=== PATIENT | male | born 1945 | race Caucasian/White ===

== ENCOUNTER 2023-05-19 08:56 | Outpatient (AMB) | payer MEDICARE, SELFPAY ==
--- NOTE | 2023-05-19 08:51 | MHC.OFFVIS ---
Intake Vital Signs 05/19/23 09:07 Height 5 ft 9 in Weight 276 lb 6 oz BMI 40.8 BP 163/70 H Blood Pressure Location Rt brachial Position Sitting Pulse 56 Pulse Source Pulse Oximeter Pulse Oximetry (%) 96 Oxygen Delivery Method Room Air Intake Visit Reasons: back pain Intake Note: Pain today 11/19 Line Ordering Clinician Required: No Accompanied by: Self / Same As Patient Allergies Penicillins Allergy (Unknown, Verified 05/19/23 09:02) Unknown Medication List - Last Reconciled 05/19/23 by EMIGDIO Long allopurinol 300 mg PO DAILY cyclobenzaprine 10 mg PO TID doxazosin 4 mg PO DAILY losartan 100 mg PO DAILY metoprolol tartrate 50 mg PO BID nitroglycerin mg sublingual simvastatin 20 mg PO BEDTIME tramadol 50 mg PO TID PRN HPI back pain HPI Details Patient is a pleasant 77 years old male presents today for initial evaluation of chronic low back pain with radiation into his right lateral hip. Denies any past or recent trauma, injury or falls. Patient has been followed at [facility] for back pain and has completed physical therapy, short term rehab and multiple diagnostic and therapeutic injections with various results. His back pain today is facet mediated with right sacroiliac joint pain components and localized tenderness in right greater trochanteric bursa. Pain is worst in the morning upon waking up and improves mildly as the day goes on. He reports increase in pain with prolonged positions and avoids sleeping on right side due to pain. Denies previous spine surgery, reports history of successful partial left knee replacement. Despite the pain, patient tries to lead an active lifestyle and exercises regularly for arthritis related pain. He lives alone and spends some of winter months in [place]. Denies any fever, abdominal or groin pain, weakness, burning, numbness, tingling, bladder or bowel dysfunction or saddle anesthesia. Location Lower back pain, with radiation to right lateral hip Duration Chronic pain for 3-4 years Characteristics of symptom or complaint Aching, tightness, shooting Aggravating or associated factors Pain comes upon waking up, movements, prolonged sitting and walking Relieving factors Cyclobenzaprine, tramadol, Tylenol, heat, hot shower, lidocaine patches Treatment PT- 3 years ago no improvement, Rehab, cortisone injections - 2 years ago [facility] Medical History (Updated 05/19/23 @ 09:46 by EMIGDIO Long) Chronic low back pain Gout Hyperlipidemia Chronic kidney disease Hypertension Surgical History History of left knee replacement (~2017) Social History Alcohol intake: current Alcohol intake frequency: a few times a month Patient Tobacco Use Status: Former Tobacco user Substance Use Type: Caffiene Substance Use Type Other:: 2 cups of coffee daily Substance Use Frequency: Daily Review of Systems Const All systems reviewed & are unremarkable except as noted in HPI and below Physical Exam Vital Signs: Last Vital Signs Pulse 56 05/19/23 09:07 BP 163/70 H 05/19/23 09:07 Pulse Ox 96 05/19/23 09:07 Oxygen Delivery Method Room Air 05/19/23 09:07 BMI result Body Mass Index 40.8 General: Appears afebrile. Alert and oriented. Mood and affect appropriate. Follows and participates in conversation appropriately. Respiratory effort is unlabored. No cough. Able to transition from sit to stand unassisted. Ambulates with bilaterally normal heel strike and toe off. Back/Spine/Pelvis Other: Limited lumbar ROM, with lumbar extension reproducing moderate pain, flexion does not reproduce pain. Demonstrates 5/5 strength of quadriceps bilaterally as well as flexion/dorsiflexion of bilateral feet against resistance. 2+ pedal pulses bilaterally. Straight leg rise with dorsiflexion negative bilaterally. Diminished patellar and achilles reflexes bilaterally. Facet loading test positive bilaterally, worse on the right. Paris sign, Hal?s, Gaenslen, Pelvic compression and Stinchfield tests are positive bilaterally, right>left. No groin pain with I/E hip rotations. +TTP right GTB. Valsalva maneuver negative. Cervical Spine: cervical ROM normal and No Cervical spine tenderness Thoracic/Lumbar Spine: thoracic and lumbar spine normal to inspection, No Thoracic/lumbar spine scar(s), Lasegue's sign negative, straight leg raise negative bilaterally, pain with thoraco-lumbar ROM, No paraspinal muscle tenderness, thoraco-lumbar ROM limited, No thoracic spinal tenderness and lumbar spinal tenderness (L5-S1) Pelvis: buttock tenderness on the right and no sciatic notch tenderness Sacroiliac joints: bilaterally tender to palpation Results Reviewed Results Reviewed: No imaging results are available for review today. Assessment & Plan Assessment & Plan (1) Lumbosacral spondylosis: Code(s): M47.817 - Spondylosis without myelopathy or radiculopathy, lumbosacral region (2) Sacroiliac joint pain: Code(s): M53.3 - Sacrococcygeal disorders, not elsewhere classified (3) Greater trochanteric bursitis of right hip: Code(s): M70.61 - Trochanteric bursitis, right hip (4) Chronic low back pain: Code(s): M54.50 - Low back pain, unspecified; G89.29 - Other chronic pain Plan Discussed interventional treatments for axial, facet-mediated, SIJ and right GTB pain generators, including neuromodulation with Sprint PNS trial, therapeutic injections and RFA procedure. Will request lumbar spine imaging from [facility] and previous interventions from [facility] for review. In meantime, patient would like to address right SIJ pain. Patient lives alone and Sprint PNS will not be suitable given his current living situation as well as residing in [place] for part of winter time. Information pamphlets provided to patient. He is currently being prescribed muscle relaxant and tramadol by his PCP and this partially allows him to be less symptomatic and more functional. Schedule Diagnostic Right Sacroiliac Joint injection with local and fluoroscopy. Expectations, risks and benefits were reviewed. Patient is aware he will be contacted to schedule this procedure. All questions were answered and the patient is in agreement of plan. Follow-up after injections and sooner as needed. Coding Level of Care Code New Pt Level 4 (49848) Diagnoses Lumbosacral spondylosis M47.817 Sacroiliac joint pain M53.3 Greater trochanteric bursitis of right hip M70.61 Chronic low back pain M54.50; G89.29
[2023-05-19 09:07] VITALS: BP 163/70; PULSE 56; O2SAT 96; BMI 40.8
== END 2023-05-19 09:38 | disposition home or self-care (01) ==
PROVIDERS: PCP Internal Medicine; Visit Provider Nurse Practitioner Family
DX: M47.817 Spondylosis without myelopathy or radiculopathy, lumbosacral region (principal); M53.3 Sacrococcygeal disorders, not elsewhere classified; M70.61 Trochanteric bursitis, right hip; M54.50 Low back pain, unspecified; G89.29 Other chronic pain
CPT/HCPCS: 99204

== ENCOUNTER → 2023-05-19 08:56 | Outpatient (BNVA) | payer MEDICARE, SELFPAY | PROVIDERS: PCP Internal Medicine; Visit Provider Nurse Practitioner Family | DX: M47.817 Spondylosis without myelopathy or radiculopathy, lumbosacral region (principal); M53.3 Sacrococcygeal disorders, not elsewhere classified; M70.61 Trochanteric bursitis, right hip; M54.50 Low back pain, unspecified; G89.29 Other chronic pain | CPT/HCPCS: 99202 ==

== ENCOUNTER 2023-06-30 05:18 | Outpatient (REF) | payer MEDICARE, SELFPAY ==
--- NOTE | ~2023-06-30 | FL_ITS ---
EXAMINATION: XR FLUOROSCOPY WITH IMAGES CLINICAL INFORMATION: Sacrococcygeal disorders, not elsewhere classified. COMPARISON: None available. TECHNIQUE: Fluoroscopy Supervised By: Dr. Hank Montgomery. Fluoroscopy Time: 0.1 minute. Cumulative Dose: 3.23 mGy. DAP: 0.0396 Gycm2. Images: 1. FINDINGS: Image demonstrates placement and contrast injection over the right sacroiliac joint FL/FL guidance in treatment room IMPRESSION: Fluoroscopy guidance for right sacroiliac joint injection.
== END 2023-06-30 05:19 | disposition home or self-care (01) ==
LOC: CF 05:18
PROVIDERS: Visit Provider Anesthesiology
DX: M53.3 Sacrococcygeal disorders, not elsewhere classified (principal); M47.817 Spondylosis without myelopathy or radiculopathy, lumbosacral region; M70.61 Trochanteric bursitis, right hip
CPT/HCPCS: 27096; J2795

== ENCOUNTER 2023-06-30 10:28 | Outpatient (AMB) | payer MEDICARE, SELFPAY ==
--- NOTE | 2023-06-30 10:42 | MHC.OFFVIS ---
Intake Vital Signs 06/30/23 11:35 06/30/23 11:36 Height 5 ft 9 in 5 ft 9 in Weight 276 lb 6 oz 276 lb 6 oz BMI 40.8 40.8 BP 132/60 130/62 Blood Pressure Location Lt brachial Lt brachial Position Sitting Sitting Respiration 16 16 Pulse 60 56 Pulse Source Pulse Oximeter Pulse Oximeter Pulse Oximetry (%) 96 96 Oxygen Delivery Method Room Air Room Air Comment pre-op post-op Intake Visit Reasons: RIGHT DIAGNOSTIC SIJ INJECTION Allergies Penicillins Allergy (Unknown, Verified 06/30/23 11:37) Unknown [facility] Medical History (Updated 05/19/23 @ 09:46 by EMIGDIO Long) Chronic low back pain Gout Hyperlipidemia Chronic kidney disease Hypertension Surgical History History of left knee replacement (~2017) Social History Alcohol intake: current Alcohol intake frequency: a few times a month Patient Tobacco Use Status: Former Tobacco user Substance Use Type: Caffiene Physical Exam Vital Signs: Last Vital Signs Pulse 56 06/30/23 11:36 Resp 16 06/30/23 11:36 BP 130/62 06/30/23 11:36 Pulse Ox 96 06/30/23 11:36 Oxygen Delivery Method Room Air 06/30/23 11:36 BMI result Body Mass Index 40.8 Assessment & Plan Assessment & Plan (1) Lumbosacral spondylosis: Code(s): M47.817 - Spondylosis without myelopathy or radiculopathy, lumbosacral region (2) Sacroiliac joint pain: Code(s): M53.3 - Sacrococcygeal disorders, not elsewhere classified (3) Greater trochanteric bursitis of right hip: Code(s): M70.61 - Trochanteric bursitis, right hip (4) Chronic low back pain: Code(s): M54.50 - Low back pain, unspecified; G89.29 - Other chronic pain Plan: Right diagnostic sacroiliac joint injection Informed consent was explained thoroughly to the patient. All questions about benefits and risks for the procedure were answered. Patient came to the operating room and was positioned prone on the operating table with the pillow under the pelvis. Time out was performed delineating name and of the patient, allergies and the nature of the procedure. The lower back and buttocks of the patient were prepped with ChloraPrep prepped and draped with sterile utility towels. C-arm was brought over the operating field and sq picture of patient's pelvis was demonstrated on the screen. For the right joint tilting C-arm contralateral to the site of the joint the most posterior portion of the joints was superimposed with anterior silhouette of the joint. Skin was injected in the projection of the joint slightly medial to the location of the joint with 25 gauge 1/2 inch needle using local lidocaine 2% .After that 22 gauge 3 and 1/2 inch needle was driven to the right joint in tunnel vision fashion. When needle entered the joint capsule injection of the contrast was performed demonstrating intra-articular and minimally periarticular spread of the contrast. After that 5 cc. of ropivacaine 0.5% was injected into the joint. Upon completion of the injections the needle was removed, sterile dressing was applied. Upon completion of the injection patient was taken outside of the operating room to the recovery room where recovered uneventfully Plan Discussed interventional treatments for axial, facet-mediated, SIJ and right GTB pain generators, including neuromodulation with Sprint PNS trial, therapeutic injections and RFA procedure. Will request lumbar spine imaging from [facility] and previous interventions from [facility] for review. In meantime, patient would like to address right SIJ pain. Patient lives alone and Sprint PNS will not be suitable given his current living situation as well as residing in [place] for part of winter time. Information pamphlets provided to patient. He is currently being prescribed muscle relaxant and tramadol by his PCP and this partially allows him to be less symptomatic and more functional. Schedule Diagnostic Right Sacroiliac Joint injection with local and fluoroscopy. Expectations, risks and benefits were reviewed. Patient is aware he will be contacted to schedule this procedure. All questions were answered and the patient is in agreement of plan. Follow-up after injections and sooner as needed. Orders: Orders [place] guidance in treatment room Today M53.3 - Sacrococcygeal disorders, not elsewhere classified Coding Level of Care Code Procedure Only Diagnoses Lumbosacral spondylosis M47.817 Sacroiliac joint pain M53.3 Greater trochanteric bursitis of right hip M70.61 Chronic low back pain M54.50; G89.29
[2023-06-30 11:35] VITALS: BP 132/60; PULSE 60; RESP 16; O2SAT 96; BMI 40.8
[2023-06-30 11:36] VITALS: BP 130/62; PULSE 56; RESP 16; O2SAT 96; BMI 40.8
== END 2023-06-30 11:11 | disposition home or self-care (01) ==
LOC: HO.PMCPRC 10:29
PROVIDERS: PCP Internal Medicine; Visit Provider Anesthesiology
DX: M53.3 Sacrococcygeal disorders, not elsewhere classified (principal); M54.50 Low back pain, unspecified
CPT/HCPCS: 27096

== ENCOUNTER 2023-07-07 12:59 | Outpatient (AMB) | payer MEDICARE, SELFPAY ==
--- NOTE | 2023-07-07 13:08 | MHC.OFFVIS ---
Intake Vital Signs 07/07/23 13:09 Height 5 ft 9 in Weight 277 lb 8 oz BMI 41.0 Respiration 16 Pulse 55 Pulse Source Pulse Oximeter Pulse Oximetry (%) 95 Oxygen Delivery Method Room Air Intake Visit Reasons: RIGHT DIAGNOSTIC SIJ INJECTION/06/30/23/confirmed Allergies Penicillins Allergy (Unknown, Verified 07/07/23 13:07) Unknown HPI HPI Comments History of Present Illness Details Patient presents to the office today 1 week s/p Diagnostic Right Sacroiliac Joint injection He reports 90% pain relief in the 6 hours after the injection with improvement in function and mobility. Patient denies untoward effects and would like to proceed with therapeutic injections. Prior: Patient is a pleasant 77 years old male presents today for initial evaluation of chronic low back pain with radiation into his right lateral hip. Denies any past or recent trauma, injury or falls. Patient has been followed at [facility] for back pain and has completed physical therapy, short term rehab and multiple diagnostic and therapeutic injections with various results. His back pain today is facet mediated with right sacroiliac joint pain components and localized tenderness in right greater trochanteric bursa. Pain is worst in the morning upon waking up and improves mildly as the day goes on. He reports increase in pain with prolonged positions and avoids sleeping on right side due to pain. Denies previous spine surgery, reports history of successful partial left knee replacement. Despite the pain, patient tries to lead an active lifestyle and exercises regularly for arthritis related pain. He lives alone and spends some of winter months in [place]. Denies any fever, abdominal or groin pain, weakness, burning, numbness, tingling, bladder or bowel dysfunction or saddle anesthesia. Location Lower back pain, with radiation to right lateral hip Duration Chronic pain for 3-4 years Characteristics of symptom or complaint Aching, tightness, shooting Aggravating or associated factors Pain comes upon waking up, movements, prolonged sitting and walking Relieving factors Cyclobenzaprine, tramadol, Tylenol, heat, hot shower, lidocaine patches Treatment PT- 3 years ago no improvement, Rehab, cortisone injections - 2 years ago [facility] Medical History (Updated 05/19/23 @ 09:46 by EMIGDIO Long) Chronic low back pain Gout Hyperlipidemia Chronic kidney disease Hypertension Surgical History History of left knee replacement (~2017) Social History Alcohol intake: current Alcohol intake frequency: a few times a month Patient Tobacco Use Status: Former Tobacco user Substance Use Type: Caffiene Review of Systems Const All systems reviewed & are unremarkable except as noted in HPI and below Physical Exam Vital Signs: Last Vital Signs Pulse 55 07/07/23 13:09 Resp 16 07/07/23 13:09 Pulse Ox 95 07/07/23 13:09 Oxygen Delivery Method Room Air 07/07/23 13:09 BMI result Body Mass Index 41.0 General: awake, alert, oriented. Answers questions appropriately. Fully engaged in examination. Skin: warm, dry, intact HEENT: Normocephalic. Hearing intact. Cardiac: External chest normal in appearance. Respiratory: No cough, audible wheezing or stridor. Abdomen: without gross distension. MS: No obvious swelling or deformities. Able to transition from sit to stand unassisted. Neurological: Oriented to person, place, time and situation. Thought process intact. No gait abnormalities appreciated. Psychiatric: Appropriate mood and affect. Good judgment and insight. Assessment & Plan Assessment & Plan (1) Lumbosacral spondylosis: Code(s): M47.817 - Spondylosis without myelopathy or radiculopathy, lumbosacral region (2) Sacroiliac joint pain: Code(s): M53.3 - Sacrococcygeal disorders, not elsewhere classified (3) Greater trochanteric bursitis of right hip: Code(s): M70.61 - Trochanteric bursitis, right hip (4) Chronic low back pain: Code(s): M54.50 - Low back pain, unspecified; G89.29 - Other chronic pain Plan Leon is a very pleasant 77-year-old male who presented to the office today for follow-up 1 week status post diagnostic right sacroiliac joint injection with local anesthetic. Patient reports greater than 90% pain relief in the 6 hours after the procedure with improvement in functional mobility. He denies any untoward effects from the injection and would like to proceed with therapeutic injection. Will schedule for fluoroscopy guided right therapeutic sacroiliac joint injection with local anesthetic. All questions and concerns were answered during the visit today. Patient agrees the plan. Follow-up after injection, sooner if needed. Coding Level of Care Code Tele Est Pt Level 3 (55802) Diagnoses Lumbosacral spondylosis M47.817 Sacroiliac joint pain M53.3 Greater trochanteric bursitis of right hip M70.61 Chronic low back pain M54.50; G89.29
[2023-07-07 13:09] VITALS: PULSE 55; RESP 16; O2SAT 95; BMI 41.0
== END 2023-07-07 13:25 | disposition home or self-care (01) ==
PROVIDERS: PCP Internal Medicine; Visit Provider Registered Nurse Emergency
DX: M47.817 Spondylosis without myelopathy or radiculopathy, lumbosacral region (principal); M53.3 Sacrococcygeal disorders, not elsewhere classified; M70.61 Trochanteric bursitis, right hip; M54.50 Low back pain, unspecified; G89.29 Other chronic pain
CPT/HCPCS: 99213

== ENCOUNTER → 2023-07-07 12:59 | Outpatient (BNVA) | payer MEDICARE, SELFPAY | PROVIDERS: PCP Internal Medicine; Visit Provider Registered Nurse Emergency | DX: M47.817 Spondylosis without myelopathy or radiculopathy, lumbosacral region (principal); M53.3 Sacrococcygeal disorders, not elsewhere classified; M70.61 Trochanteric bursitis, right hip; M54.50 Low back pain, unspecified; G89.29 Other chronic pain | CPT/HCPCS: 99212 ==

== ENCOUNTER → 2023-07-16 12:37 | Day surgery (SDC) | payer MEDICARE, SELFPAY ==
--- NOTE | ~2023-07-16 | FL_ITS ---
EXAMINATION: XR FLUOROSCOPY WITH IMAGES CLINICAL INFORMATION: Therapeutic sacroiliac joint steroid injection. COMPARISON: None available. TECHNIQUE: Fluoroscopy Supervised By: Dr. Hank Montgomery. Fluoroscopy Time: 0.1 minute. Cumulative Dose: 3.30 mGy. DAP: 0.0507 Gycm2. Images: 2. FINDINGS: Image demonstrates needle placement and contrast injection over the right sacroiliac joint FL/FL guidance in OR IMPRESSION: Fluoroscopy guidance for right sacroiliac joint injection.
[2023-07-16 14:45] VITALS: BMI 40.5
[2023-07-16 14:46] VITALS: BP 160/68; PULSE 66; RESP 18; TEMP 36.4; O2SAT 98
--- NOTE | 2023-07-16 16:01 | MHC.SHP ---
Pre-Procedural Eval Section A Date of Service: 07/16/23 The patient is an INPATIENT: No Changes since office visit: Yes Patient answered all questions The History & Physical has been completed within 30 days and I have reviewed it.: No Section B Chief Complaint: Sacrococcygeal disorders, not elsewhere classified Details of Present Illness: as above Relevant Family History (Specify if Yes): No Relevant Social History: Other (specify) Present Medications: None Medical History: No relevant PMH History of Previous Operations: No relevant previous surgery Allergies: Allergies Allergy/AdvReac Type Severity Reaction Status Date / Time Penicillins Allergy Unknown Unknown Verified 07/07/23 13:07 Review of Systems Sugical H&P ROS: Negative: Cardiovascular, Respiratory, Neurological, Psychiatric, Hem-Onc, Allergic/Immunologic, Gastrointestinal, Genitourinary, Musculoskeletal, Integumentary, Endocrine and Eyes/Ears/Nose/Throat and Yes, Specify: Constitution (obesity) Exam Surgical H&P Exam: Normal: HEENT, Normal: Heart, Normal: Lungs, Normal: Extremities, Normal: Abdomen, Normal: Skin and Normal: Neurological Plan Diagnosis/Plan: Unchanged I have reviewed the history and physical and performed a pertinent physical examination on my patient. No changes have occurred unless specified. Time Spent With Patient Time: Total time managing care of this patient today ____ minutes.
--- NOTE | 2023-07-16 17:03 | PM.OP ---
Brief Operative Note Date of Service: 07/16/23 Pre-op diagnosis: Sacroiliitis, right sacroiliac joint dysfunction Post-op diagnosis: same Procedure: therapeutic right sacroiliac joint injection. Surgeon: Hank Montgomery MD Anesthesia: local Was an Tour Actor used for this Procedure?: No Estimated blood loss (mL): 1 Condition: stable Disposition: PACU
--- NOTE | 2023-07-16 17:03 | W.PM.OPN ---
Operative Note Operative Note Date of Service: 07/16/23 Narrative: Right Therapeutic sacroiliac joint injection. Informed consent was explained thoroughly to the patient. All questions about benefits and risks for the procedure were answered. Patient came to the operating room and was positioned prone on the operating table with the pillow under the pelvis. Time out was performed delineating name and of the patient, allergies and the nature of the procedure. The lower back and buttocks of the patient were prepped with ChloraPrep prepped and draped with sterile utility towels. C-arm was brought over the operating field and sq picture of patient's pelvis was demonstrated on the screen. For the right joint tilting C-arm contralateral to the site of the joint the most posterior portion of the joints was superimposed with anterior silhouette of the joint. Skin was injected in the projection of the joint slightly medial to the location of the joint with 25 gauge 1/2 inch needle using local lidocaine 2% .After that 22 gauge 3 and 1/2 inch needle was driven to the right joint in tunnel vision fashion. When needle entered the joint capsule injection of the contrast was performed demonstrating intra-articular spread of the contrast. After that 4 cc. of ropivacaine 0.5% mixed with kenalog 40 mg was injected into the joint. Upon completion of the injections the needle was removed Sterile dressing was applied. Upon completion of the injection patient was taken outside of the operating room to the recovery room where recovered uneventfully.
[2023-07-16 17:30] VITALS: BP 162/51; PULSE 75; RESP 20; TEMP 36.6; O2SAT 97
== END | disposition home or self-care (01) ==
PROVIDERS: PCP Internal Medicine; Visit Provider Anesthesiology
PROC: 3E0U33Z Introduction of Anti-inflammatory into Joints, Percutaneous Approach (ICD-10-PCS; CPT 27096; principal; 2023-07-16 16:30)
DX: M53.3 Sacrococcygeal disorders, not elsewhere classified (principal); G89.29 Other chronic pain; M47.817 Spondylosis without myelopathy or radiculopathy, lumbosacral region; M54.50 Low back pain, unspecified; M10.9 Gout, unspecified; M70.61 Trochanteric bursitis, right hip; I12.9 Hypertensive chronic kidney disease with stage 1 through stage 4 chronic kidney disease, or unspecified chronic kidney disease; N18.9 Chronic kidney disease, unspecified; Z88.0 Allergy status to penicillin; Z96.652 Presence of left artificial knee joint; Z87.891 Personal history of nicotine dependence
CPT/HCPCS: G0260; J2795; J3301; Q9967

== ENCOUNTER → 2023-07-16 12:37 | Outpatient (BNV) | payer MEDICARE, SELFPAY | PROVIDERS: PCP Internal Medicine; Visit Provider Anesthesiology | DX: M53.3 Sacrococcygeal disorders, not elsewhere classified (principal) | CPT/HCPCS: 27096 ==

== ENCOUNTER 2023-08-20 10:06 | Outpatient (AMB) | payer MEDICARE, SELFPAY ==
--- NOTE | 2023-08-20 10:11 | A.OFFVIS_ITS ---
Intake Intake Visit Reasons: S/p (R) SIJ Inj 07/16/23 Allergies Penicillins Allergy (Unknown, Verified 07/07/23 13:07) Unknown HPI HPI Comments History of Present Illness Details Televisit completed today for follow up 1 month s/p therapeutic right SIJ injection Patient currently in [place], will be there for another 2 months. He reports 80-85% pain relief since the injection with improvement in function and mobility. Drove to [place] and was not in any discomfort during the long drive. Denies any untoward effects of the injection. Prior: Patient presents to the office today 1 week s/p Diagnostic Right Sacroiliac Joint injection He reports 90% pain relief in the 6 hours after the injection with improvement in function and mobility. Patient denies untoward effects and would like to proceed with therapeutic injections. Prior: Patient is a pleasant 77 years old male presents today for initial evaluation of chronic low back pain with radiation into his right lateral hip. Denies any past or recent trauma, injury or falls. Patient has been followed at [facility] for back pain and has completed physical therapy, short term rehab and multiple diagnostic and therapeutic injections with various results. His back pain today is facet mediated with right sacroiliac joint pain components and localized tenderness in right greater trochanteric bursa. Pain is worst in the morning upon waking up and improves mildly as the day goes on. He reports increase in pain with prolonged positions and avoids sleeping on right side due to pain. Denies previous spine surgery, reports history of successful partial left knee replacement. Despite the pain, patient tries to lead an active lifestyle and exercises regularly for arthritis related pain. He lives alone and spends some of winter months in [place]. Denies any fever, abdominal or groin pain, weakness, burning, numbness, tingling, bladder or bowel dysfunction or saddle anesthesia. Location Lower back pain, with radiation to right lateral hip Duration Chronic pain for 3-4 years Characteristics of symptom or complaint Aching, tightness, shooting Aggravating or associated factors Pain comes upon waking up, movements, prolonged sitting and walking Relieving factors Cyclobenzaprine, tramadol, Tylenol, heat, hot shower, lidocaine patches Treatment PT- 3 years ago no improvement, Rehab, cortisone injections - 2 years ago [facility] Medical History (Updated 05/19/23 @ 09:46 by EMIGDIO Long) Chronic low back pain Gout Hyperlipidemia Chronic kidney disease Hypertension Surgical History History of left knee replacement (~2017) Social History Alcohol intake: current Alcohol intake frequency: a few times a month Patient Tobacco Use Status: Former Tobacco user Substance Use Type: Caffiene Review of Systems Const All systems reviewed & are unremarkable except as noted in HPI and below Assessment & Plan Assessment & Plan (1) Lumbosacral spondylosis: Code(s): M47.817 - Spondylosis without myelopathy or radiculopathy, lumbosacral region (2) Sacroiliac joint pain: Code(s): M53.3 - Sacrococcygeal disorders, not elsewhere classified (3) Greater trochanteric bursitis of right hip: Code(s): M70.61 - Trochanteric bursitis, right hip (4) Chronic low back pain: Code(s): M54.50 - Low back pain, unspecified; G89.29 - Other chronic pain Plan Televisit performed today with patient as he is currently in [place] for the Winter. 1 month s/p right therapeutic SIJ injection with reported 80-85% pain relief since the injection with improvement in function and mobility. He denies any untoward effects from the injection and would like to proceed with therapeutic injection. All questions and concerns were answered during the televisit today. Follow-up when pain returns, sooner if needed. Telehealth Telehealth Location of provider rendering services: practice address Location of patient: address on file Patient Identification confirmed using: Name, : Yes Telehealth method: voice only Patient verbally consented to treatment: Yes Patient verbally consented to billing insurance company: Yes Patient informed of any privacy concerns related to visit: Yes Minutes spent on Phone/Video with Pt.: 13 Coding Level of Care Code Tele Est Pt Level 3 (70301) Diagnoses Lumbosacral spondylosis M47.817 Sacroiliac joint pain M53.3 Greater trochanteric bursitis of right hip M70.61 Chronic low back pain M54.50; G89.29
== END 2023-08-20 10:11 | disposition home or self-care (01) ==
LOC: HO.PMC 10:06
PROVIDERS: PCP Internal Medicine; Visit Provider Registered Nurse Emergency
DX: M47.817 Spondylosis without myelopathy or radiculopathy, lumbosacral region (principal); M53.3 Sacrococcygeal disorders, not elsewhere classified; M70.61 Trochanteric bursitis, right hip; M54.50 Low back pain, unspecified; G89.29 Other chronic pain
CPT/HCPCS: 99442

== ENCOUNTER → 2023-08-20 10:06 | Outpatient (BNVA) | payer MEDICARE, SELFPAY | PROVIDERS: PCP Internal Medicine; Visit Provider Registered Nurse Emergency ==

== ENCOUNTER 2023-12-02 11:08 | Outpatient (AMB) | payer MEDICARE, SELFPAY ==
--- NOTE | 2023-12-02 11:19 | A.OFFVIS_ITS ---
Vital Signs 12/02/23 11:20 Height 5 ft 9 in Weight 270 lb 6 oz BMI 39.9 BP 141/62 H Blood Pressure Location Lt brachial Position Sitting Respiration 16 Pulse 53 Pulse Source Pulse Oximeter Pulse Oximetry (%) 96 Oxygen Delivery Method Room Air Intake Visit Reasons: Lower Back Pain Returned Allergies Penicillins Allergy (Unknown, Verified 12/02/23 11:15) Unknown HPI Comments Details: Patient presents back to the office today for follow-up, 4 months status post right therapeutic sacroiliac joint injection Patient endorses 95% pain with improvement and looks mobility for 10 weeks after that injection. Pain then slowly started to return. Pain today is rated as a 7/10, he would like to repeat the injection Prior: Televisit completed today for follow up 1 month s/p therapeutic right SIJ injection Patient currently in [place], will be there for another 2 months. He reports 80-85% pain relief since the injection with improvement in function and mobility. Drove to [place] and was not in any discomfort during the long drive. Denies any untoward effects of the injection. Prior: Patient presents to the office today 1 week s/p Diagnostic Right Sacroiliac Joint injection He reports 90% pain relief in the 6 hours after the injection with improvement in function and mobility. Patient denies untoward effects and would like to proceed with therapeutic injections. Prior: Patient is a pleasant 77 years old male presents today for initial evaluation of chronic low back pain with radiation into his right lateral hip. Denies any past or recent trauma, injury or falls. Patient has been followed at [facility] for back pain and has completed physical therapy, short term rehab and multiple di agnostic and therapeutic injections with various results. His back pain today is facet mediated with right sacroiliac joint pain components and localized tenderness in right greater trochanteric bursa. Pain is worst in the morning upon waking up and improves mildly as the day goes on. He reports increase in pain with prolonged positions and avoids sleeping on right side due to pain. Denies previous spine surgery, reports history of successful partial left knee replacement. Despite the pain, patient tries to lead an active lifestyle and exercises regularly for arthritis related pain. He lives alone and spends some of winter months in [place]. Denies any fever, abdominal or groin pain, weakness, burning, numbness, tingling, bladder or bowel dysfunction or saddle anesthesia. Location Lower back pain, with radiation to right lateral hip Duration Chronic pain for 3-4 years Characteristics of symptom or complaint Aching, tightness, shooting Aggravating or associated factors Pain comes upon waking up, movements, prolonged sitting and walking Relieving factors Cyclobenzaprine, tramadol, Tylenol, heat, hot shower, lidocaine patches Treatment PT- 3 years ago no improvement, Rehab, cortisone injections - 2 years ago [facility] Medical History (Updated 05/19/23 @ 09:46 by EMIGDIO Long) Chronic low back pain Gout Hyperlipidemia Chronic kidney disease Hypertension Surgical History History of left knee replacement (~2017) Social History Alcohol intake: current Alcohol intake frequency: a few times a month Patient Tobacco Use Status: Former Tobacco user Substance Use Type: Caffiene Review of Systems Const All systems reviewed & are unremarkable except as noted in HPI and below Physical Exam Vital Signs: Last Vital Signs Pulse 53 12/02/23 11:20 Resp 16 12/02/23 11:20 BP 141/62 H 12/02/23 11:20 Pulse Ox 96 12/02/23 11:20 Oxygen Delivery Method Room Air 12/02/23 11:20 BMI result Body Mass Index 39.9 General: awake, alert, oriented. Answers questions appropriately. Fully engaged in examination. Skin: warm, dry, intact HEENT: Normocephalic. Hearing intact. Cardiac: External chest normal in appearance. Respiratory: No cough, audible wheezing or stridor. Abdomen: without gross distension. MS: No obvious swelling or deformities. Able to stand on bilateral tiptoes and bilateral heels.? Able to transition from sit to stand unassisted. Ambulates with bilaterally normal heel strike and toe off Bilateral lower extremity strength 5/5 SLR with dorsiflexion negative bilaterally Tenderness over right PSIS MARK positive on the right [place] positive on the right SI compression positive on the right Thigh thrust positive on the right Neurological: Oriented to person, place, time and situation. Thought process intact. No gait abnormalities appreciated. Psychiatric: Appropriate mood and affect. Good judgment and insight. Back/Spine/Pelvis Other: Assessment & Plan Assessment & Plan (1) Lumbosacral spondylosis: Code(s): M47.817 - Spondylosis without myelopathy or radiculopathy, lumbosacral region Category: Medical (2) Sacroiliac joint pain: Code(s): M53.3 - Sacrococcygeal disorders, not elsewhere classified Category: Medical (3) Greater trochanteric bursitis of right hip: Code(s): M70.61 - Trochanteric bursitis, right hip Category: Medical (4) Chronic low back pain: Code(s): M54.50 - Low back pain, unspecified; G89.29 - Other chronic pain Category: Medical Plan Patient presented to the office today for follow-up, 4 months status post right therapeutic sacroiliac joint injection He endorses 95% relief of pain with improvement in function mobility since the injection. Denies any untoward effects and would like to repeat the injection at this time Will schedule for fluoroscopy guided right therapeutic sacroiliac joint injection with local anesthetic All questions and concerns were answered, patient agrees with the plan. Follow up after injections, sooner if needed. Coding Level of Care Code Est Pt Level 3 (58669) Diagnoses Lumbosacral spondylosis M47.817 Sacroiliac joint pain M53.3 Greater trochanteric bursitis of right hip M70.61 Chronic low back pain M54.50; G89.29
[2023-12-02 11:20] VITALS: BP 141/62; PULSE 53; RESP 16; O2SAT 96; BMI 39.9
== END 2023-12-02 11:42 | disposition home or self-care (01) ==
PROVIDERS: PCP Internal Medicine; Visit Provider Registered Nurse Emergency
DX: M47.817 Spondylosis without myelopathy or radiculopathy, lumbosacral region (principal); M53.3 Sacrococcygeal disorders, not elsewhere classified; M70.61 Trochanteric bursitis, right hip; M54.50 Low back pain, unspecified; G89.29 Other chronic pain
CPT/HCPCS: 99213

== ENCOUNTER → 2023-12-02 11:08 | Outpatient (BNVA) | payer MEDICARE, SELFPAY | PROVIDERS: PCP Internal Medicine; Visit Provider Registered Nurse Emergency | DX: M47.817 Spondylosis without myelopathy or radiculopathy, lumbosacral region (principal); M54.50 Low back pain, unspecified; G89.29 Other chronic pain; M53.3 Sacrococcygeal disorders, not elsewhere classified; M70.61 Trochanteric bursitis, right hip; Z96.652 Presence of left artificial knee joint | CPT/HCPCS: 99212 ==

== ENCOUNTER 2024-01-05 06:20 | Outpatient (REF) | payer MEDICARE, SELFPAY ==
--- NOTE | ~2024-01-05 | FL_ITS ---
EXAMINATION: XR FLUOROSCOPY WITH IMAGES CLINICAL INFORMATION: Sacrococcygeal disorder. COMPARISON: None available. TECHNIQUE: Fluoroscopy Supervised By: Dr. Montgomery. Fluoroscopy Time: 9 sec. Cumulative Dose: 7.0320 mGy. DAP: 1.4146 Gycm2. Images: 1. FINDINGS: Intraoperative fluoroscopy and spot films were performed during a procedure in the OR. A needle is seen just medial to the region of the right SI joint with contrast seen around the needle tip. Please correlate with Dr. Montgomery's report for complete details. FL/FL guidance in treatment room IMPRESSION: Intraoperative fluoroscopy and spot films were obtained. Please see Dr. Montgomery's report for complete details.
== END 2024-01-05 06:21 | disposition home or self-care (01) ==
LOC: CF 06:20
PROVIDERS: Visit Provider Anesthesiology
DX: Z13.89 Encounter for screening for other disorder (principal)
CPT/HCPCS: J2795; J3301; Q9967

== ENCOUNTER 2024-01-05 10:57 | Outpatient (AMB) | payer MEDICARE, SELFPAY ==
--- NOTE | 2024-01-05 11:27 | MHC.OFFVIS ---
Vital Signs 01/05/24 11:49 Height 5 ft 9 in Weight 270 lb 6 oz BMI 39.9 BP 144/50 H Blood Pressure Location Lt brachial Position Sitting Respiration 16 Pulse 60 Pulse Source Pulse Oximeter Pulse Oximetry (%) 98 Oxygen Delivery Method Room Air Comment pre-op Intake Visit Reasons: Therapeutic SIJ injection Allergies Penicillins Allergy (Unknown, Verified 01/05/24 12:08) Unknown diclofenac [From Voltaren] Allergy (Verified 01/05/24 12:08) Hives [facility] Medical History Chronic low back pain Gout Hyperlipidemia Chronic kidney disease Hypertension Surgical History History of left knee replacement (~2016) Social History Alcohol intake: current Alcohol intake frequency: a few times a month Patient Tobacco Use Status: Former Tobacco user Substance Use Type: Caffiene Physical Exam Vital Signs: Last Vital Signs Pulse 60 01/05/24 11:49 Resp 16 01/05/24 11:49 BP 144/50 H 01/05/24 11:49 Pulse Ox 98 01/05/24 11:49 Oxygen Delivery Method Room Air 01/05/24 11:49 BMI result Body Mass Index 39.9 Assessment & Plan Assessment & Plan (1) Lumbosacral spondylosis: Code(s): M47.817 - Spondylosis without myelopathy or radiculopathy, lumbosacral region Category: Medical (2) Sacroiliac joint pain: Code(s): M53.3 - Sacrococcygeal disorders, not elsewhere classified Category: Medical (3) Greater trochanteric bursitis of right hip: Code(s): M70.61 - Trochanteric bursitis, right hip Category: Medical (4) Chronic low back pain: Code(s): M54.50 - Low back pain, unspecified; G89.29 - Other chronic pain Category: Medical Plan: Right therapeutic sacroiliac joint injection Informed consent was explained thoroughly to the patient. All questions about benefits and risks for the procedure were answered. Patient came to the operating room and was positioned prone on the operating table with the pillow under the pelvis. Time out was performed delineating name and of the patient, allergies and the nature of the procedure. The lower back and buttocks of the patient were prepped with ChloraPrep prepped and draped with sterile utility towels. C-arm was brought over the operating field and sq picture of patient's pelvis was demonstrated on the screen. For the right joint tilting C-arm contralateral to the site of the joint the most posterior portion of the joints was superimposed with anterior silhouette of the joint. Skin was injected in the projection of the joint slightly medial to the location of the joint with 25 gauge 1/2 inch needle using local lidocaine 2% .After that 22 gauge 3 and 1/2 inch needle was driven to the right joint in tunnel vision fashion. When needle entered the joint capsule injection of the contrast was performed demonstrating intra-articular and minimally periarticular spread of the contrast. After that 5 cc. of ropivacaine 0.5% was injected into the joint. Upon completion of the injections the needle was removed, sterile dressing was applied. Upon completion of the injection patient was taken outside of the operating room He started to complain on pain in the back of the head and shortness of breath. His face became flushed. Blood pressure was taken and it was 156 over 68 and pulse oximetry was 98% on room air with heart rate of 68. The patient complained on transient chest pain across the chest, atypical for coronary syndrome. Nevertheless the rapid response team was called and patient was transferred to emergency room for EKG taking, evaluation, possibly serial troponins. Plan Plan of care follow-up with emergency room. Orders: Orders FL guidance in treatment room 01/05/24 M53.3 - Sacrococcygeal disorders, not elsewhere classified Coding Level of Care Code Procedure Only Diagnoses Lumbosacral spondylosis M47.817 Sacroiliac joint pain M53.3 Greater trochanteric bursitis of right hip M70.61 Chronic low back pain M54.50; G89.29
[2024-01-05 11:49] VITALS: BP 144/50; PULSE 60; RESP 16; O2SAT 98; BMI 39.9
== END 2024-01-05 11:37 | disposition home or self-care (01) ==
LOC: HO.PMCPRC 10:57
PROVIDERS: PCP Internal Medicine; Visit Provider Anesthesiology
DX: M53.3 Sacrococcygeal disorders, not elsewhere classified (principal)
CPT/HCPCS: 27096

== ENCOUNTER 2024-01-05 11:49 | Emergency (ER) | payer MEDICARE, SELFPAY ==
[2024-01-05] VITALS (7 sets, daily range): BP systolic 127–167; BP diastolic 52–83; PULSE 64–82; RESP 16–18; TEMP 36.8–36.9; O2SAT 95–97; BMI 42.2
--- NOTE | 2024-01-05 12:30 | ECG_ITS ---
Test Reason : SYNCOPE Blood Pressure : / mmHG Vent. Rate : 072 BPM Atrial Rate : 072 BPM P-R Int : 180 ms QRS Dur : 144 ms QT Int : 424 ms P-R-T Axes : 076 039 057 degrees QTc Int : 464 ms Normal sinus rhythm Right bundle branch block Abnormal ECG No previous ECGs available Referred By: Corina Garcia Electronically Signed By:GARRICK LOERA MD
--- NOTE | 2024-01-05 12:31 | ED.GENADULT ---
HPI - General Adult General Chief complaint: General Medical Stated complaint: Outpatient response Time Seen by Provider: 01/05/24 12:21 Source: patient and family Mode of arrival: wheelchair Limitations: no limitations History of Present Illness ED Provider: Dr. Corina Garcia HPI narrative: patient comes to the emergency room via wheelchair from the pain management clinic. Earlier today patient had a steroid injection, started becoming lightheaded, mild chest pain, mild shortness of breath, diaphoretic. By the time that the patient arrived in the emergency room, patient was feeling well. Patient states that he started noticing that he was not feeling well after he was asked to stand up and walk from a sitting position. Patient states that he had a similar episode yesterday in the evening. Patient states that the only thing that is new is that he was started on carvedilol yesterday 25 mg b.i.d.. At this time, patient states he has asymptomatic, no dizziness, no chest pain or shortness of breath. Related Data Home Medications ?Medication ?Instructions ?Recorded ?Confirmed allopurinol 300 mg tablet 300 mg PO DAILY 05/19/23 cyclobenzaprine 10 mg tablet 10 mg PO TID 05/19/23 doxazosin 4 mg tablet 4 mg PO DAILY 05/19/23 losartan 100 mg tablet 100 mg PO DAILY 05/19/23 nitroglycerin 0.4 mg sublingual mg sublingual 05/19/23 tablet simvastatin 20 mg tablet 20 mg PO BEDTIME 05/19/23 tramadol 50 mg tablet 50 mg PO TID PRN 05/19/23 carvedilol 25 mg tablet 25 mg PO BID 01/05/24 dapagliflozin propanediol 10 mg 10 mg PO DAILY 01/05/24 tablet (Farxiga) Previous Rx's ?Medication ?Instructions ?Recorded carvedilol 12.5 mg tablet 12.5 mg PO BID #20 tabs 01/05/24 Allergies Allergy/AdvReac Type Severity Reaction Status Date / Time Penicillins Allergy Unknown Unknown Verified 01/05/24 12:08 diclofenac [From Voltaren] Allergy Hives Verified 01/05/24 12:08 Review of Systems Review of Systems: Constitutional : No Weight loss, No Fever, No Chills, No Night Sweats, No Fatigue, No Malaise complaining of facial flushing ENT/Mouth : No Hearing loss, No Ear Pain, No Nasal Congestion, No Sinus Pain, No Hoarseness, No sore throat, No Rhinorrhea, No Swallowing Difficulty Eyes: No Eye Pain, No Swelling, No Redness, No Foreign Body, No Discharge, No Vision Changes Cardiovascular : Near-syncope with standing, No Chest Pain, No SOB, No Dyspnea on Exertion, No Orthopnea, No Edema, No Palpitations Respiratory : No Cough, No Sputum, No Wheezing, No Smoke Exposure, No Dyspnea Gastrointestinal : No Nausea, No Vomiting, No Diarrhea, No Constipation, No abdominal Pain, No Hematochezia, No Melena Genitourinary : no irregular bleeding, No Dysuria, No Urinary Frequency, No Hematuria, No Urinary Incontinence, No Urgency, No Flank Pain, No Urinary Flow Changes, No Hesitancy Musculoskeletal : No joint pain, No Myalgias, No Joint Swelling Skin : No Skin Lesions, No rash Neuro : No Weakness, No Numbness, No Paresthesias, No Loss of Consciousness, No Dizziness, No Headache Psych : No Anxiety/Panic, No Depression, No SI/HI/AH/VH, No Social Issues, Heme/Lymph: No Bruising, No Bleeding,No Lymphadenopathy Endocrine : No Polyuria, No Polydipsia, No Temperature Intolerance PMFSH Past Medical History Medical History Chronic low back pain Gout Hyperlipidemia Chronic kidney disease Hypertension Surgical History History of left knee replacement (~2016) Social History Social History Alcohol intake: current Alcohol intake frequency: a few times a month Patient Tobacco Use Status: Former Tobacco user Substance Use Type: Caffiene Advance Directives: No Advance Directives Information Provided: Yes Do you have a plan to hurt others: No Plan Physical Exam ED Vital Signs: Vital Signs - 24 hr 01/05/24 12:03 01/05/24 14:17 01/05/24 14:18 Temperature 98.3 F Pulse Rate 64 75 76 Respiratory Rate 18 Blood Pressure 127/52 L 149/63 H 157/68 H Pulse Oximetry 95 Oxygen Delivery Method Nasal Cannula 01/05/24 14:20 01/05/24 14:22 01/05/24 18:44 Temperature 98.3 F 98.5 F Pulse Rate 80 80 82 Respiratory Rate 17 16 Blood Pressure 146/65 H 146/65 H 167/83 H Pulse Oximetry 97 97 Oxygen Delivery Method Room Air Room Air BMI result Body Mass Index 42.2 Const Other: Appearance: Alert. Oriented X3. No acute distress. Eyes: Pupils equal, round and reactive to light. ENT: Pharynx normal. Neck: Normal inspection. Neck supple. No lymph nodes noted. No crepitus CVS: Normal heart rate and rhythm. Pulses normal. Normal S1 and S2 Respiratory: No respiratory distress. Breath sounds normal. No Wheezing. No rales Abdomen: Soft and nontender. No rigidity. No distention. Skin: Skin warm and dry. Normal skin color. Normal skin turgor. Extremities: No lower extremity edema. No Lacerations. No Rash Neuro: Oriented X 3. No motor deficit. No sensory deficit. Moving all extremities. No slurred speech. CN 2 through 12 grossly intact Psych: calm, cooperative, normal affect Medications Administered Discontinued Medications Generic Name Dose Route Start Last Admin Trade Name Freq PRN Reason Stop Dose Admin Sodium Chloride 1,000 mls @ 999 mls/hr 01/05/24 15:02 01/05/24 16:39 Ns IVCONT 01/05/24 16:02 Infused .Q1H1M ONE Infusion Medical Decision Making Medical Decision Making [facility] Narrative: My interpretation of labs, hematology does not show any significant abnormality. Creatinine is a bit elevated, 1.51. We do not have any previous labs to compare to. Patient was giving IV fluids and then creatinine improved to 1.43. Patient states that he has been told by his invoice control clerk at [facility] that his creatinine has been intermittently elevated and normal for 15 years without any clear cause. at this time, 1.43 close to baseline. We will have the patient follow-up with his invoice control clerk. - patient states that the near syncopal episode /dizziness started yesterday after he started taking carvedilol 25 mg b.i.d.. I discussed with the patient that if he has noticed that this is a pattern since he started taking the medications, we will decrease his carvedilol to 12.5 mg b.i.d. and patient will have to follow-up with his primary care physician and instrument lens generator. Patient states he has an appointment pending in a few days. Patient agrees with plan. - Orthostatic vitals negative, patient asymptomatic Differential Diagnosis Differential Diagnoses: The differential diagnosis associated with the presentation includes ( vasovagal near syncope, orthostatic hypotension, MORGAN, dehydration) Admission/Observation Consideration of admission/observation: Escalation of care including admission/observation considered Lab Data MDM Lab Attestation statement: I reviewed the patient's lab results. 01/05/24 13:19 01/05/24 16:50 Labs: Lab Results 01/05/24 01/05/24 01/05/24 Range/Units 13:19 13:20 16:50 WBC 8.9 (4.8-10.8) X10*3/uL RBC 4.07 L (4.60-5.80) X10*6/uL Hgb 13.3 L (14.0-18.0) g/dl Hct 39.7 L (42.0-52.0) % MCV 97.5 (80.0-98.0) fL MCH 32.7 (27.0-33.0) pg MCHC 33.5 (31.0-36.0) g/dl RDW 14.4 (11.0-16.0) % Plt Count 151 L (160-400) X10*3/uL MPV 11.4 (9.4-12.4) fL Immature Gran % (Auto) 4.6 H (0.0-0.4) % Neut % (Auto) 87.6 H (45-73) % Lymph % (Auto) 4.0 L (20-40) % Fallon % (Auto) 1.6 L (2-11) % Eos % (Auto) 1.6 (0-4) % Baso % (Auto) 0.6 (0-2) % Lymph # (Auto) 0.4 L (1.2-4.9) X10*3/uL Fallon # (Auto) 0.1 (0.1-1.2) X10*3/uL Eos # (Auto) 0.1 (0.0-0.4) X10*3/uL Baso # (Auto) 0.1 (0.0-0.2) X10*3/uL Abs Immat Gran (auto) 0.41 H (0.00-0.03) X10*3/uL Absolute Neuts (auto) 7.8 (2.0-8.3) x10*3/uL Absolute Nucleated RBC 0.000 (0.0-0.012) X10*3/uL Nucleated RBC % (auto) 0.0 (0.0-0.2) /100WBC Sodium 142 140 (135-145) mmol/L Potassium 5.2 H 5.3 H (3.3-5.1) mmol/L Chloride 110 H 110 H (96-108) mmol/L Carbon Dioxide 22 22 (22-29) mmol/L Anion Gap 15 13 (12-20) BUN 28 H 27 H (9-16) mg/dL Creatinine 1.51 H 1.43 H (0.5-1.4) mg/dL Estim Creat Clear Calc 54.6 57.7 Estimated GFR 45 48 Random Glucose 106 131 H (60-115) mg/dL Calcium 9.2 9.0 (8.4-10.2) mg/dL Troponin I High Sens 9.7 (<3.5-35.0) ng/L Independent Interpretation I performed an independent interpretation of an: EKG ( my interpretation of EKG, normal sinus rhythm, right bundle branch block, heart rate 72, no ST segment depression or elevation, no T-wave inversion, QTC 464) Independent Historian Clinical information obtained from an independent historian. History obtained from or confirmed by: Spouse Critical Care Time Critical Care Time Critical Care Time: Yes Total Critical Care Time: 60 Attestation: I have personally provided critical care time. Time includes review of lab data, radiology results, discussion with consultants, and monitoring for potential decompensation. Intervention performed as documented. Discharge Plan Discharge Clinical Impression: MORGAN (acute kidney injury), Vasovagal near syncope Patient Disposition: Home, Self-Care Instructions: Dehydration (ED), Syncope (ED) Additional Instructions: Please follow-up with your primary care physician tomorrow. If you have any worsening or new symptoms, please return to the emergency room or call 911 Prescriptions: New carvedilol 12.5 mg tablet 12.5 mg PO BID Qty: 20 0RF Rx Instructions: must administer with a meal/food No Action cyclobenzaprine 10 mg tablet 10 mg PO TID losartan 100 mg tablet 100 mg PO DAILY doxazosin 4 mg tablet 4 mg PO DAILY nitroglycerin 0.4 mg tablet, sublingual sublingual allopurinol 300 mg tablet 300 mg PO DAILY simvastatin 20 mg tablet 20 mg PO BEDTIME tramadol 50 mg tablet 50 mg PO TID PRN carvedilol 25 mg tablet 25 mg PO BID dapagliflozin propanediol [Farxiga] 10 mg tablet 10 mg PO DAILY Print Language: Albanian
[2024-01-05 13:25] LABS: MANUAL DIFF FLAG NO
[2024-01-05 13:30] LABS: Basophils Absolute Auto 0.1 X10*3/uL (0.0-0.2); Basophils Percent Auto 0.6 % (0-2); Eosinophils Absolute Auto 0.1 X10*3/uL (0.0-0.4); Eosinophils Percent Auto 1.6 % (0-4); Hematocrit 39.7 % (42.0-52.0); Hemoglobin 13.3 g/dl (14.0-18.0); Imm Gran Abs Auto 0.41 X10*3/uL (0.00-0.03); Imm Gran Pct Auto 4.6 % (0.0-0.4); Lymphocytes Absolute Auto 0.4 X10*3/uL (1.2-4.9); Mean Corpuscular HGB Conc 33.5 g/dl (31.0-36.0); Mean Corpuscular Hemoglobin 32.7 pg (27.0-33.0); Mean Corpuscular Volume 97.5 fL (80.0-98.0); Mean Platelet Volume 11.4 fL (9.4-12.4); Monocytes Absolute Auto 0.1 X10*3/uL (0.1-1.2); Monocytes Percent Auto 1.6 % (2-11); Neutrophils Absolute Auto 7.8 x10*3/uL (2.0-8.3); Neutrophils Percent Auto 87.6 % (45-73); Platelet Count 151 X10*3/uL (160-400); Red Blood Count 4.07 X10*6/uL (4.60-5.80); Red Cell Distribution Width 14.4 % (11.0-16.0); White Blood Count 8.9 X10*3/uL (4.8-10.8)
[2024-01-05 13:46] LABS: Anion Gap 15 (12-20); Blood Urea Nitrogen 28 mg/dL (9-16); Calcium 9.2 mg/dL (8.4-10.2); Carbon Dioxide 22 mmol/L (22-29); Chloride 110 mmol/L (96-108); Creatinine Clr Calc Pharmacy 54.6; Estimated Glomerular Filt Rate 45; Glucose Random 106 mg/dL (60-115); Potassium 5.2 mmol/L (3.3-5.1); Sodium 142 mmol/L (135-145)
[2024-01-05 14:15] LABS: Troponin-I High Sensitivity 9.7 ng/L (<3.5-35.0)
[2024-01-05] MEDS: 0.9 % Sodium Chloride 1,000 ML 999 ML IVCONT (15:24)
[2024-01-05 17:56] LABS: Anion Gap 13 (12-20); Blood Urea Nitrogen 27 mg/dL (9-16); Carbon Dioxide 22 mmol/L (22-29); Chloride 110 mmol/L (96-108); Creatinine Clr Calc Pharmacy 57.7; Estimated Glomerular Filt Rate 48; Glucose Random 131 mg/dL (60-115); Potassium 5.3 mmol/L (3.3-5.1); Sodium 140 mmol/L (135-145)
== END 2024-01-05 19:43 | disposition home or self-care (01) ==
PROVIDERS: Emergency Provider Emergency Medicine; PCP Internal Medicine
DX: R55 Syncope and collapse (principal); N17.9 Acute kidney failure, unspecified; R42 Dizziness and giddiness; R07.89 Other chest pain; R06.02 Shortness of breath; R11.0 Nausea; Z79.899 Other long term (current) drug therapy; Z87.891 Personal history of nicotine dependence
CPT/HCPCS: 27096; 36415; 80048; 84484; 85025; 93005; 96360; 99284; J2795; J3301; Q9967

== ENCOUNTER → 2024-01-05 12:30 | Outpatient (BNV) | payer MEDICARE, SELFPAY | PROVIDERS: Emergency Provider Emergency Medicine; PCP Internal Medicine; Visit Provider Internal Medicine Cardiovascular Disease | DX: R55 Syncope and collapse (principal); I45.10 Unspecified right bundle-branch block; R94.31 Abnormal electrocardiogram [ECG] [EKG] | CPT/HCPCS: 93010 ==

== ENCOUNTER 2024-01-29 10:06 | Outpatient (AMB) | payer MEDICARE, SELFPAY ==
--- NOTE | 2024-01-29 10:08 | MHC.OFFVIS ---
Vital Signs 01/29/24 10:09 Height 5 ft 10 in Weight 265 lb BMI 38.0 BP 168/70 H Blood Pressure Location Lt brachial Position Sitting Pulse 60 Pulse Source Pulse Oximeter Pulse Oximetry (%) 97 Oxygen Delivery Method Room Air Intake Visit Reasons: Therapeutic SIJ injection Allergies Penicillins Allergy (Unknown, Verified 01/29/24 10:12) Unknown diclofenac [From Voltaren] Allergy (Verified 01/29/24 10:12) Hives Medication List - Last Reconciled 01/29/24 by Anna Martinez allopurinol 300 mg PO DAILY carvedilol 12.5 mg PO BID carvedilol 25 mg PO BID cyclobenzaprine 10 mg PO TID dapagliflozin propanediol (Farxiga) 10 mg PO DAILY doxazosin 4 mg PO DAILY losartan 100 mg PO DAILY nitroglycerin mg sublingual simvastatin 20 mg PO BEDTIME tramadol 50 mg PO TID PRN HPI Comments Details: Leon presents back to the office today, 1 month status post right therapeutic sacroiliac joint injection He reports 80% pain relief in the month following the injection. Endorses improvement in function and mobility. Previously he has tried sacroiliac bracing, physical therapy, home exercise program, nonsteroidal anti-inflammatory medications, short-term rehab, dietary and lifestyle changes. Pain today is rated as a 3/10 Prior: Patient presents back to the office today for follow-up, 4 months status post right therapeutic sacroiliac joint injection Patient endorses 95% pain with improvement and looks mobility for 10 weeks after that injection. Pain then slowly started to return. Pain today is rated as a 7/10, he would like to repeat the injection Prior: Televisit completed today for follow up 1 month s/p therapeutic right SIJ injection Patient currently in [place], will be there for another 2 months. He reports 80-85% pain relief since the injection with improvement in function and mobility. Drove to [place] and was not in any discomfort during the long drive. Denies any untoward effects of the injection. Prior: Patient presents to the office today 1 week s/p Diagnostic Right Sacroiliac Joint injection He reports 90% pain relief in the 6 hours after the injection with improvement in function and mobility. Patient denies untoward effects and would like to proceed with therapeutic injections. Prior: Patient is a pleasant 77 years old male presents today for initial evaluation of chronic low back pain with radiation into his right lateral hip. Denies any past or recent trauma, injury or falls. Patient has been followed at [facility] for back pain and has completed physical therapy, short term rehab and multiple diagnostic and therapeutic injections with various results. His back pain today is facet mediated with right sacroiliac joint pain components and localized tenderness in right greater trochanteric bursa. Pain is worst in the morning upon waking up and improves mildly as the day goes on. He reports increase in pain with prolonged positions and avoids sleeping on right side due to pain. Denies previous spine surgery, reports history of successful partial left knee replacement. Despite the pain, patient tries to lead an active lifestyle and exercises regularly for arthritis related pain. He lives alone and spends some of winter months in [place]. Denies any fever, abdominal or groin pain, weakness, burning, numbness, tingling, bladder or bowel dysfunction or saddle anesthesia. Location Lower back pain, with radiation to right lateral hip Duration Chronic pain for 3-4 years Characteristics of symptom or complaint Aching, tightness, shooting Aggravating or associated factors Pain comes upon waking up, movements, prolonged sitting and walking Relieving factors Cyclobenzaprine, tramadol, Tylenol, heat, hot shower, lidocaine patches Treatment PT- 3 years ago no improvement, Rehab, cortisone injections - 2 years ago [facility] Medical History Chronic low back pain Gout Hyperlipidemia Chronic kidney disease Hypertension Surgical History History of left knee replacement (~2016) Social History Alcohol intake: current Alcohol intake frequency: a few times a month Patient Tobacco Use Status: Former Tobacco user Substance Use Type: Caffiene Review of Systems Const All systems reviewed & are unremarkable except as noted in HPI and below Physical Exam Vital Signs: Last Vital Signs Pulse 60 01/29/24 10:09 BP 168/70 H 01/29/24 10:09 Pulse Ox 97 01/29/24 10:09 Oxygen Delivery Method Room Air 01/29/24 10:09 BMI result Body Mass Index 38.0 General: awake, alert, oriented. Answers questions appropriately. Fully engaged in examination. Skin: warm, dry, intact HEENT: Normocephalic. Hearing intact. Cardiac: External chest normal in appearance. Respiratory: No cough, audible wheezing or stridor. Abdomen: without gross distension. MS: No obvious swelling or deformities. Able to stand on bilateral tiptoes and bilateral heels.? Able to transition from sit to stand unassisted. Ambulates with bilaterally normal heel strike and toe off Bilateral lower extremity strength 5/5 SLR with dorsiflexion negative bilaterally Tenderness over right PSIS MARK positive on the right [place] positive on the right SI compression positive on the right Thigh thrust positive on the right Neurological: Oriented to person, place, time and situation. Thought process intact. No gait abnormalities appreciated. Psychiatric: Appropriate mood and affect. Good judgment and insight. Back/Spine/Pelvis Other: Assessment & Plan Assessment & Plan (1) Lumbosacral spondylosis: Code(s): M47.817 - Spondylosis without myelopathy or radiculopathy, lumbosacral region Category: Medical (2) Greater trochanteric bursitis of right hip: Code(s): M70.61 - Trochanteric bursitis, right hip Category: Medical (3) Chronic low back pain: Code(s): M54.50 - Low back pain, unspecified; G89.29 - Other chronic pain Category: Medical (4) Sacroiliac joint dysfunction of right side: Code(s): M53.3 - Sacrococcygeal disorders, not elsewhere classified Category: Medical Plan Patient presented to the office today for follow-up, 1 month status post right therapeutic sacroiliac joint injection He reports 80% pain relief in the month following the injection. Endorses improvement in function and mobility. Discussed at length diagnosis and treatment options including continued therapeutic injections, peripheral nerve stimulation with chronic and SI joint fusion. Patient would like to start the process to proceed with right SI J fusion. Order placed for CT bony pelvis Order placed for x-ray bilateral hips and pelvis Previously he has tried sacroiliac bracing, physical therapy, home exercise program, nonsteroidal anti-inflammatory medications, short-term rehab, dietary and lifestyle modifications All questions and concerns were answered, patient agrees with the plan. Follow up after imaging, sooner if needed. Orders: Orders CT bony pelvis Today M53.3 - Sacrococcygeal disorders, not elsewhere classified XR hip BI w PEL1V Today M53.3 - Sacrococcygeal disorders, not elsewhere classified Coding Level of Care Code Est Pt Level 3 (73616) Diagnoses Lumbosacral spondylosis M47.817 Greater trochanteric bursitis of right hip M70.61 Chronic low back pain M54.50; G89.29 Sacroiliac joint dysfunction of right side M53.3
[2024-01-29 10:09] VITALS: BP 168/70; PULSE 60; O2SAT 97; BMI 38.0
== END 2024-01-29 10:55 | disposition home or self-care (01) ==
PROVIDERS: PCP Internal Medicine; Visit Provider Registered Nurse Emergency
DX: M47.817 Spondylosis without myelopathy or radiculopathy, lumbosacral region (principal); M70.61 Trochanteric bursitis, right hip; M54.50 Low back pain, unspecified; G89.29 Other chronic pain; M53.3 Sacrococcygeal disorders, not elsewhere classified
CPT/HCPCS: 99213

== ENCOUNTER → 2024-01-29 10:06 | Outpatient (BNVA) | payer MEDICARE, SELFPAY | PROVIDERS: PCP Internal Medicine; Visit Provider Registered Nurse Emergency | DX: M47.817 Spondylosis without myelopathy or radiculopathy, lumbosacral region (principal); M70.61 Trochanteric bursitis, right hip; M54.50 Low back pain, unspecified; M53.3 Sacrococcygeal disorders, not elsewhere classified; G89.29 Other chronic pain | CPT/HCPCS: 99212 ==

== ENCOUNTER 2024-03-08 14:53 | Outpatient (REF) | payer MEDICARE, SELFPAY ==
--- NOTE | ~2024-03-08 | CT_ITS ---
EXAMINATION: CT PELVIS WITHOUT CONTRAST CLINICAL INFORMATION: Persistent right sacroiliac joint pain despite conservative management. Evaluate for sacroiliac joint fusion. COMPARISON: Recurrent hip and pelvic radiographs. TECHNIQUE: Helical scanning was performed with submillimeter collimation through the pelvis. Sagittal and coronal multiplanar 2-D reconstructions were obtained. This CT examination was performed using dose optimization techniques as appropriate, variously including the following: *Automated exposure control *Adjustment of mA and/or kV according to patient size (this includes techniques or standardized protocols for targeted exams where dose is matched to indication/reason for exam; i.e. extremities or head) *Use of iterative reconstruction technique DLP: 784 mGy-cm FINDINGS: PELVIS: No pelvic mass or fluid collection. Small prostate calcifications. The pelvic bowel loops are unremarkable without evidence of inflammation or obstruction. No lymphadenopathy. No significant inguinal hernia. Atherosclerotic calcifications. OSSEOUS STRUCTURES: Mild bilateral sacroiliac joint space narrowing and anterior marginal osteophytes. No periarticular erosion or significant joint effusion. Mild bilateral hip osteoarthritis. Bone island within the left iliac. 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 No acute fracture or dislocation. No evidence of femoral head avascular necrosis. Levocurvature of the visualized lower lumbar spine with severe multilevel degenerative disc disease and bilateral facet arthropathy. Grade 1 anterolisthesis of L5 on S1 with chronic bilateral spondylolysis. CT/CT bony pelvis IMPRESSION: 1. Mild bilateral sacroiliac and hip osteoarthritis. No sacroiliac joint fusion. 2. 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 3. Levocurvature of the visualized lower lumbar spine with severe multilevel degenerative disc disease and bilateral facet arthropathy. Grade 1 anterolisthesis of L5 on S1 with chronic bilateral spondylolysis. Electronically signed by: Dmitry Hassan MD 03/30/2024 09:51 AM EDT
--- NOTE | ~2024-03-08 | XR_ITS ---
EXAMINATION: XR BILATERAL HIPS WITH AP PELVIS CLINICAL INFORMATION: Sacrococcygeal disorders. COMPARISON: None available. TECHNIQUE: AP pelvis and AP and lateral views of both hips. FINDINGS: No fracture. Hip joint spaces are maintained. Alignment is anatomic. Sacroiliac joints and pubic symphysis are normal. No abnormal soft tissue calcifications. Incidental note made of spondylosis of the partially visualized lumbar sacral spine XR/XR hip BI w PEL1V IMPRESSION: 1. Normal pelvis and hips. 2. Incidental note made of spondylosis of the partially visualized lumbar sacral spine. Electronically signed by: Britton Stark MD 03/29/2024 07:41 AM EDT
== END 2024-03-08 14:54 | disposition home or self-care (01) ==
LOC: HO.CT 14:53
PROVIDERS: PCP Internal Medicine; Visit Provider Registered Nurse Emergency
DX: M53.3 Sacrococcygeal disorders, not elsewhere classified (principal)
CPT/HCPCS: 72192; 73521

== ENCOUNTER → 2024-05-04 15:48 | Outpatient (BNV) | payer MEDICARE, SELFPAY | PROVIDERS: PCP Internal Medicine; Visit Provider Radiology Diagnostic Radiology | DX: M54.50 Low back pain, unspecified (principal) | CPT/HCPCS: 72148 ==

== ENCOUNTER 2024-05-04 15:49 | Outpatient (REF) | payer MEDICARE, SELFPAY ==
--- NOTE | ~2024-05-04 | MR_ITS ---
EXAMINATION: MR LUMBAR SPINE WITHOUT CONTRAST CLINICAL INFORMATION: Chronic low back pain. Morning stiffness. COMPARISON: CT bony pelvis 03/08/2024. TECHNIQUE: Multiplanar multisequence MR imaging of the lumbar spine was done without IV contrast. Examination was performed on a 1.5 Aminta Siemens magnet, utilizing standard sequences. Exam submitted for review 06/22/2024 9:40 AM SENIOR PROGRAM PLANNER. FINDINGS: CORONAL ALIGNMENT: -Levoconvex scoliosis measuring 21 degrees, apex at L4. SAGITTAL ALIGNMENT: -Normal lordosis. -There is a 3 mm retrolisthesis of L1 on L2, L2 on L3 -There is a grade 1, 7 mm spondylolisthesis L5 on S1. There are full-thickness L5 pars defects. LUMBOSACRAL JUNCTION: -Normal. There are 5 [id number] lumbar-type vertebral bodies. VERTEBRAL BODIES/BONE MARROW: -There are no compression deformities. -There are mild edematous endplate changes present at L1-2, L2-3, and more prominent at L3-4 intermixed with fatty type endplate changes, as well as L5-S1 intermixed with fatty type endplate changes. -There is a small Schmorl's node in the inferior endplate of L2. -There is no infiltrating abnormal bone marrow signal. -There is edema within the right L3-L5 pedicles and surrounding the L4-5 and L5-S1 right facet joints. -Mild edema also noted in the left L5 pedicle. DISCS: -There is severe disc degeneration present spanning L1-L5, worst at L4-5 and L5-S1, with associated disc vacuum phenomenon. -There is moderate disc degeneration at L1-2, and mild degeneration at T11-12. SPINAL CANAL: -No abnormal developmental findings. CONUS MEDULLARIS: -Terminates at L1. Morphology and signal is normal. INTRADURAL NERVE ROOTS: - Normal in morphology without clumping or discrete mass seen. Axial Disc Space Images: T11-T12: Only seen sagittally. Shallow bulging disc without significant mass effect. No central canal or neural foraminal narrowing. T12-L1: Only seen sagittally, no central canal or neural foraminal narrowing. L1-L2: There is a subtle retrolisthesis. There is a left lateral disc osteophytic protrusion extending into the left foraminal zone and lateral to foramen. There is a right lateral to foramen disc osteophytic protrusion. Mild degenerative hypertrophic facet changes bilaterally, with mild posterior ligamentous thickening. Findings result in mild central canal narrowing, mild left subarticular recess narrowing, and moderate left neural foraminal narrowing. L2-L3: Mild degenerative retrolisthesis. Minimal shallow diffuse disc osteophytic bulge, with superimposed left foraminal disc protrusion. There are [id number] hypertrophic degenerative facet changes bilaterally, with mild posterior ligamentous infolding/thickening. Combination of findings is resulting in mild central canal narrowing, mild bilateral subarticular recess narrowing, mild right and moderate left neural foraminal narrowing. L3-L4: There is a diffuse concentric disc osteophytic ridge complex extending into both foraminal zones symmetrically. Moderate to severe hypertrophic degenerative facet changes bilaterally with left facet joint effusion, and marked posterior ligamentous thickening/infolding. There is moderate to severe AP diameter of the thecal sac is been reduced 8 mm. There is moderate left greater than right subarticular recess stenosis, with contact and minimal deviation of the left greater than right traversing L4 roots. There is moderate to severe right and moderate left neural foraminal stenosis. There may be mild impingement of the exiting right L3 root. Central canal stenosis with central nerve root crowding. L4-L5: Shallow diffuse disc osteophytic ridge complex present, extending into the right greater than left foraminal zones. Moderate to severe hypertrophic degenerative facet changes right greater than left, with facet joint effusions, and prominent posterior ligamentous thickening/infolding. Moderate central canal stenosis is present. There is moderate to severe right and moderate left subarticular recess narrowing. There may be mild impingement of the traversing right L5 roots. There is moderate to severe left and severe right neural foraminal impingement present. L5-S1: Grade 1 spondylolisthesis measuring 7 mm. Full-thickness pars defects with end-stage degenerative facet changes. There is mild posterior ligamentous ossification in the infolding. There is mild central canal stenosis, moderate bilateral subarticular recess stenosis right greater than left, and severe greater than right neural foraminal impingement with obliteration of the left neural foramen. IMAGED SI JOINTS: -Mild to moderate degenerative arthrosis bilaterally. PARAVERTEBRAL AND INCLUDED EXTRASPINAL SOFT TISSUES: -No discrete abnormalities. There is a simple cyst in the posterior inferior right kidney. Aorta is normal in caliber. MR/MR lumbar spine wo con IMPRESSION: 1. Multilevel moderate to advanced spondylosis, most significant at L3-S1. 2. Grade 1 spondylolisthesis L5 on S1 measuring 7 mm. 3. Moderate to severe central canal stenosis L3-4, moderate central canal stenosis L4-5. 4. Moderate to severe right and moderate left neural foraminal stenosis at L3-4, moderate to severe left and severe right neural foraminal narrowing at L4-5, and severe bilateral neural foraminal stenosis L5-S1 left greater than right. 5. Edematous endplate changes most pronounced L3-S1. 6. See the body the report for additional ancillary findings. Electronically signed by: Los Forbes MD 06/22/2024 11:12 AM BABATUNDE
== END 2024-05-04 15:50 | disposition home or self-care (01) ==
LOC: HO.MRI 15:49
PROVIDERS: PCP Internal Medicine; Visit Provider Registered Nurse Emergency
DX: M54.50 Low back pain, unspecified (principal); G89.29 Other chronic pain
CPT/HCPCS: 72148

== ENCOUNTER 2024-06-29 14:10 | Outpatient (AMB) | payer MEDICARE, SELFPAY ==
--- NOTE | 2024-06-29 14:12 | MHC.OFFVIS ---
Vital Signs 06/29/24 14:18 Height 5 ft 10 in Weight 267 lb BMI 38.3 BP 180/77 H Blood Pressure Location Rt brachial Position Sitting Pulse 66 Pulse Source Pulse Oximeter Pulse Oximetry (%) 97 Oxygen Delivery Method Room Air Intake Visit Reasons: Xray/MRI FU Parking Technician Required: No Accompanied by: Self / Same As Patient Allergies Penicillins Allergy (Unknown, Verified 06/29/24 14:45) Unknown diclofenac [From Voltaren] Allergy (Verified 06/29/24 14:45) Hives HPI Comments Details: Patient presents back to the office today for follow-up, review recent MRI MRI reviewed, results as per below Patient was planning for SI joint fusion. He is leaving for [place] in 2 weeks and will not return until 12/04. He would like to follow-up when he returns from [place] before proceeding with any prior Auth/procedures He reports his sacroiliac joint pain has been improved since his last injection. Pain is more axial, stiff when he wakes up in the morning, midline lower back, deep, dull, ache. Prior: Leon presents back to the office today, 1 month status post right therapeutic sacroiliac joint injection He reports 80% pain relief in the month following the injection. Endorses improvement in function and mobility. Previously he has tried sacroiliac bracing, physical therapy, home exercise program, nonsteroidal anti-inflammatory medications, short-term rehab, dietary and lifestyle changes. Pain today is rated as a 3/10 Prior: Patient presents back to the office today for follow-up, 4 months status post right therapeutic sacroiliac joint injection Patient endorses 95% pain with improvement and looks mobility for 10 weeks after that injection. Pain then slowly started to return. Pain today is rated as a 7/10, he would like to repeat the injection Prior: Televisit completed today for follow up 1 month s/p therapeutic right SIJ injection Patient currently in [place], will be there for another 2 months. He reports 80-85% pain relief since the injection with improvement in function and mobility. Drove to [place] and was not in any discomfort during the long drive. Denies any untoward effects of the injection. Prior: Patient presents to the office today 1 week s/p Diagnostic Right Sacroiliac Joint injection He reports 90% pain relief in the 6 hours after the injection with improvement in function and mobility. Patient denies untoward effects and would like to proceed with therapeutic injections. Prior: Patient is a pleasant 77 years old male presents today for initial evaluation of chronic low back pain with radiation into his right lateral hip. Denies any past or recent trauma, injury or falls. Patient has been followed at [facility] for back pain and has completed physical therapy, short term rehab and multiple diagnostic and therapeutic injections with various results. His back pain today is facet mediated with right sacroiliac joint pain components and localized tenderness in right greater trochanteric bursa. Pain is worst in the morning upon waking up and improves mildly as the day goes on. He reports increase in pain with prolonged positions and avoids sleeping on right side due to pain. Denies previous spine surgery, reports history of successful partial left knee replacement. Despite the pain, patient tries to lead an active lifestyle and exercises regularly for arthritis related pain. He lives alone and spends some of winter months in [place]. Denies any fever, abdominal or groin pain, weakness, burning, numbness, tingling, bladder or bowel dysfunction or saddle anesthesia. Location Lower back pain, with radiation to right lateral hip Duration Chronic pain for 3-4 years Characteristics of symptom or complaint Aching, tightness, shooting Aggravating or associated factors Pain comes upon waking up, movements, prolonged sitting and walking Relieving factors Cyclobenzaprine, tramadol, Tylenol, heat, hot shower, lidocaine patches Treatment PT- 3 years ago no improvement, Rehab, cortisone injections - 2 years ago [facility] Medical History Chronic low back pain Gout Hyperlipidemia Chronic kidney disease Hypertension Surgical History History of left knee replacement (~2016) Social History Alcohol intake: current Alcohol intake frequency: a few times a month Patient Tobacco Use Status: Former Tobacco user Substance Use Type: Caffiene Review of Systems Const All systems reviewed & are unremarkable except as noted in HPI and below Physical Exam Vital Signs: Last Vital Signs Pulse 66 06/29/24 14:18 BP 180/77 H 06/29/24 14:18 Pulse Ox 97 06/29/24 14:18 Oxygen Delivery Method Room Air 06/29/24 14:18 BMI result Body Mass Index 38.3 General: awake, alert, oriented. Answers questions appropriately. Fully engaged in examination. Skin: warm, dry, intact HEENT: Normocephalic. Hearing intact. Cardiac: External chest normal in appearance. Respiratory: No cough, audible wheezing or stridor. Abdomen: without gross distension. MS: No obvious swelling or deformities. Neurological: Oriented to person, place, time and situation. Thought process intact. No gait abnormalities appreciated. Psychiatric: Appropriate mood and affect. Good judgment and insight. Back/Spine/Pelvis Other: Results Reviewed Results Reviewed: 05/04/24 MR/MR lumbar spine wo con IMPRESSION: 1. Multilevel moderate to advanced spondylosis, most significant at L3-S1. 2. Grade 1 spondylolisthesis L5 on S1 measuring 7 mm. 3. Moderate to severe central canal stenosis L3-4, moderate central canal stenosis L4-5. 4. Moderate to severe right and moderate left neural foraminal stenosis at L3-4, moderate to severe left and severe right neural foraminal narrowing at L4-5, and severe bilateral neural foraminal stenosis L5-S1 left greater than right. 5. Edematous endplate changes most pronounced L3-S1. 6. See the body the report for additional ancillary findings Assessment & Plan Assessment & Plan (1) Lumbosacral spondylosis: Code(s): M47.817 - Spondylosis without myelopathy or radiculopathy, lumbosacral region Category: Medical (2) Greater trochanteric bursitis of right hip: Code(s): M70.61 - Trochanteric bursitis, right hip Category: Medical (3) Chronic low back pain: Code(s): M54.50 - Low back pain, unspecified; G89.29 - Other chronic pain Category: Medical (4) Sacroiliac joint dysfunction of right side: Code(s): M53.3 - Sacrococcygeal disorders, not elsewhere classified Category: Medical Plan Patient presented to the office today for follow-up, review of recent MRI MRI reviewed, results as per above Plan was for right SIJ fusion, patient has leaving for [place] in 2 weeks. He will return in November. Patient would like to hold off until he returns from his extended trip before proceeding with any further procedures. All questions and concerns were answered, patient agrees with the plan. Follow up in November, sooner if needed. Coding Level of Care Code Est Pt Level 3 (13961) Complex EM visit Add On G2211 Diagnoses Lumbosacral spondylosis M47.817 Greater trochanteric bursitis of right hip M70.61 Chronic low back pain M54.50; G89.29 Sacroiliac joint dysfunction of right side M53.3
[2024-06-29 14:18] VITALS: BP 180/77; PULSE 66; O2SAT 97; BMI 38.3
== END 2024-06-29 14:40 | disposition home or self-care (01) ==
PROVIDERS: PCP Internal Medicine; Visit Provider Registered Nurse Emergency
DX: M47.817 Spondylosis without myelopathy or radiculopathy, lumbosacral region (principal); M70.61 Trochanteric bursitis, right hip; M54.50 Low back pain, unspecified; G89.29 Other chronic pain; M53.3 Sacrococcygeal disorders, not elsewhere classified
CPT/HCPCS: 99213; G2211

== ENCOUNTER → 2024-06-29 14:10 | Outpatient (BNVA) | payer MEDICARE, SELFPAY | PROVIDERS: PCP Internal Medicine; Visit Provider Registered Nurse Emergency | DX: M47.817 Spondylosis without myelopathy or radiculopathy, lumbosacral region (principal); M70.61 Trochanteric bursitis, right hip; M54.50 Low back pain, unspecified; M53.3 Sacrococcygeal disorders, not elsewhere classified; G89.29 Other chronic pain | CPT/HCPCS: 99212 ==